=== PATIENT | female | born 1965 | race Caucasian/White ===

== ENCOUNTER → 2017-06-23 | Outpatient (CLI) | payer OTHER ==
--- NOTE | 2017-06-23 19:46 | Diagnostic Imaging Report ---
Right breast ultrasound. INDICATION: Thickening in the outer aspect of the right breast. FINDINGS: Area of thickening is scanned with no underlying abnormality seen around 10 to 11 o'clock in the right breast. IMPRESSION: Negative study. Clinical followup of patient's symptoms is recommended. ACR BI-RADS Category 1: Negative. Dictated by: Dictated on workstation # [id number]
--- NOTE | 2017-06-23 19:49 | Diagnostic Imaging Report ---
Bilateral diagnostic mammogram with tomography evaluation. The current study was also evaluated with a Computer Aided Detection (CAD) system. COMPARISON: 07/12/2014. INDICATION: Area of thickening in the upper aspect of the right breast. FINDINGS: The breasts are composed of heterogenously dense parenchyma which may decrease mammographic sensitivity. There is no mass, architectural distortion or suspicious cluster of calcifications. Area of thickening is marked in the upper-outer aspect of the right breast with no definitive underlying lesion. IMPRESSION: No mammographic evidence of malignancy. Ultrasound evaluation pending. ACR BI-RADS Category 0: Incomplete. (Needs additional imaging evaluation). Result letter will be mailed to the patient. Note: At least 10% of breast cancer is not imaged by mammography. Dictated by: Dictated on workstation # [id number]
== END ==
LOC: RAD 13:57
PROVIDERS: ATTEND Internal Medicine
DX: N63.11 Unspecified lump in the right breast, upper outer quadrant (principal)
CPT/HCPCS: 77066

== ENCOUNTER → 2019-09-24 | Outpatient (CLI) | payer OTHER ==
--- NOTE | 2019-09-24 15:35 | Diagnostic Imaging Report ---
INDICATION: Routine screening. Comparison is made with prior mammograms from 06/23/2017 and 07/12/2014. 2-D and 3-D bilateral screening mammography was performed. The current study was also evaluated with a Computer Aided Detection (CAD) system. 3-D tomosynthesis was also performed and reviewed. FINDINGS: Scattered fibroglandular densities are identified bilaterally. Probable intraparenchymal lymph node in the outer left breast appears to be stable. There are benign calcifications present. No spiculated mass or malignant-appearing microcalcifications are seen. Axillae are unremarkable. IMPRESSION: No mammographic features suspicious for malignancy are identified. ACR BI-RADS Category 2: Benign findings. Result letter will be mailed to the patient. Note: At least 10% of breast cancer is not imaged by mammography. Dictated by: Dictated on workstation # [id number]
== END ==
LOC: RAD 15:02
PROVIDERS: ATTEND Internal Medicine
DX: Z12.31 Encounter for screening mammogram for malignant neoplasm of breast (principal)
CPT/HCPCS: 77067

== ENCOUNTER → 2020-09-29 | Outpatient (CLI) | payer OTHER ==
--- NOTE | 2020-09-29 11:42 | Diagnostic Imaging Report ---
Indication: Routine screening. Comparison is made with prior mammogram 09/24/2019 and 06/23/2017. 2-D and 3-D bilateral screening mammography was performed with CAD. Both breasts are heterogeneously dense, limiting the sensitivity of mammography. Benign nodule outer left breast is stable. There are benign calcifications present. No spiculated mass or malignant appearing microcalcifications are seen. Axillae are unremarkable. IMPRESSION: BI-RADS Category 2 No mammographic features suspicious for malignancy are identified. ACR BI-RADS Category 2: Benign findings. Result letter will be mailed to the patient. Note: At least 10% of breast cancer is not imaged by mammography. Dictated by: Dictated on workstation # [id number]
== END ==
LOC: RAD 07:30
PROVIDERS: ATTEND Internal Medicine
DX: Z12.31 Encounter for screening mammogram for malignant neoplasm of breast (principal)
CPT/HCPCS: 77063; 77067

== ENCOUNTER 2023-01-17 14:03 | Emergency (ER) | payer OTHER ==
[~2023-01-17] VITALS: Ht 165 cm; Wt 69.5 kg
--- NOTE | 2023-01-17 14:54 | ED Lower Extremity ---
General Chief Complaint: Lower Extremity Stated Complaint: DOG BITE | Nursing Triage Note: CO DOG BITE AT 0930 THIS AM. WAS SEEN AT [facility] AND GIVEN A TETNUS SHOT AND IS NOW HERE BECAUSE SHE WAS TOLD SHE NEEDED TO COME AND GET A RABIES VACCINATION BY [facility] STAFF. PATIENT STATES IT WAS REPORTED TO [place] [employer] AND SHE HAS A CASE NUMBER. THE DOG IS STILL UNDER INVESTIGATION. Source: patient Exam Limitations: no limitations History of Present Illness Date Seen by Provider: Jan 17, 2023 Time Seen by Provider: 14:50 Initial Comments Patient is a 57-year-old female presents ED with a dog bite to her right leg. This occurred around 930 this morning. She was riding her bike with her grandson. She states a pack of 3 dogs was chasing after her. She was bitten by a dog to the right lower leg. She reports 4 puncture wounds. She was seen at [facility] received a tetanus shot and Augmentin. She came to the ED to discuss the rabies vaccine. She denies of any specific pain, fever, chills, fever, headache, dizziness, nausea, vomiting, diarrhea, muscle cramping at this time. Animal control and PD was contacted. They are currently looking for the dog. Allergies and Home Medications Allergies Coded Allergies: No Known Drug Allergies (Verified , 06/06/21) Patient Home Medication List Home Medication List Reviewed: Yes Review of Systems Constitutional: No chills, No diaphoresis, No fever, No malaise, No weakness EENTM: No hearing loss, No ear pain, No blurred vision Respiratory: No cough Cardiovascular: No chest pain, No edema Gastrointestinal: No abdominal pain, No diarrhea, No nausea, No vomiting Genitourinary: No decreased output Musculoskeletal: No back pain, No joint pain, No joint swelling; muscle pain Skin: change in color All Other Systems Reviewed Negative Unless Noted: Yes Past Iddisdj-Skaynb-Zdueta Hx Patient Social History Tobacco Use?: No Use of E-Cig and/or Vaping dev: No Substance use?: No Alcohol Use?: No Pt feels they are or have been: No Immunizations Up To Date Influenza Vaccine Up-to-Date: Yes; Up-to-Date Past Medical History Surgery/Hospitalization HX: MIGRAINES GB, TUBALIGATION Physical Exam Vital Signs Vital Signs - First Documented 01/17/23 14:15 Temp 36.9 Pulse 72 Resp 18 B/P (MAP) 111/75 (87) Pulse Ox 97 O2 Delivery Room Air Capillary Refill : Less Than 3 Seconds Height, Weight, BMI Height: '" Weight: lbs. oz. kg; 25.00 BMI Method: General Appearance: WD/WN, no apparent distress HEENT: PERRL/EOMI, normal ENT inspection, TMs normal, pharynx normal Neck: non-tender, full range of motion, supple Cardiovascular: regular rate, rhythm, no edema, no gallop, no JVD Respiratory: chest non-tender, lungs clear, normal breath sounds, no respiratory distress, no accessory muscle use Gastrointestinal: normal bowel sounds, non tender, soft, no organomegaly Back: normal inspection, no CVA tenderness, no vertebral tenderness Hips: bilateral hip non-tender, bilateral hip normal inspection, bilateral hip normal range of motion Knees: bilateral knee non-tender, bilateral knee normal inspection, bilateral knee normal range of motion Ankles: bilateral ankle non-tender, bilateral ankle normal inspection, bilateral ankle normal range of motion Feet: bilateral foot non-tender, bilateral foot normal inspection, bilateral foot normal range of motion Neurologic/Tendon: normal sensation, normal motor functions, normal tendon functions Neurologic/Psychiatric: emergency communications officer II-XII nml as tested, no motor/sensory deficits, alert, normal mood/affect, oriented x 3 Skin: other (4 puncture wounds to the right lateral lower leg. No surrounding redness or swelling. No active drainage. No tenderness to palpate.) Progress/Results/Core Measures Results/Orders Vital Signs/I&O 01/17/23 01/17/23 14:15 14:57 Temp 36.9 36.9 Pulse 72 72 Resp 18 18 B/P (MAP) 111/75 (87) 111/75 Pulse Ox 97 97 O2 Delivery Room Air Room Air Blood Pressure Mean: 87 Departure Communication (PCP) Patient presents ED for evaluation after a dog bite that occurred around 930 this morning. Animal control was contacted. They are currently looking for the dog. This appeared to be a stray dog. Did not have a lesion or collar. Patient was seen at [facility] received tetanus shot and started on Augmentin. Was recommended come to ED. On exam she does have 4 puncture wounds to the right lower leg. No surrounding redness or swelling. She has no other complaints. Discussed patient [facility] shift lead for [facility]. She did not necessarily recommended rabies vaccine at this time or the immunoglobulin. The prevalence of rabies in this area is extremely low. She does have within 7 days to receive the immunoglobulin or the vaccine but recommended to find the dog and watch the dog at this time for any change in behavior or aggressiveness of the animal. Discussed this in length the conversation with the patient which she agreed. If concern and wanting the vaccine and immunoglobulin she may return back to ED. I did offer the vaccine and the immunoglobulin but she would rather wait at this time which I do think is reasonable. If any fever, chills, muscle spasming, change in behavior to return back to ED. Discussed wound care to the right leg. Continue with Augmentin. Anti-inflammatories for pain. Impression Primary Impression: Dog bite Disposition: 01 HOME, SELF-CARE Condition: Stable Departure-Patient Inst. Decision time for Depature: 14:52 Referrals: NESTOR LUDWIG DO (PCP/Family) Primary Care Physician Patient Instructions: Animal Bites (DC) Add. Discharge Instructions: Recommend continue to find the dog. Have up to 7 days to receive the rabies vaccine and immunoglobulin after talking with epidemiology for the [facility]. Chances are extremely low in this area. If any concern may return back to ED for the vaccine and immunoglobulin All discharge instructions reviewed with patient and/or family. Voiced understanding. KIRSTEN ROCK Jan 17, 2023 14:54
[2023-01-17 14:57] VITALS: BP 111/75
== END 2023-01-17 14:57 | disposition home or self-care (01) ==
LOC: EDUNIT# 14:03 → ER 14:06
DX: S81.851A Open bite, right lower leg, initial encounter (principal); W54.0XXA Bitten by dog, initial encounter; Y93.55 Activity, bike riding
CPT/HCPCS: 99281